=== PATIENT | male | born 1995 | race African-American/Black ===

== ENCOUNTER 2021-02-03 01:47 | Emergency (ER) | payer MEDICAID ==
[~2021-02-03] VITALS: Ht 175.3 cm; Wt 72.6 kg
[2021-02-03] MEDS ORDERED: KETOROLAC 60MG/2ML VIAL IM STA (02:21)
[2021-02-03] MEDS ORDERED: HYDROCODONE/ACETAMINOPHEN 5/325MG TABLET PO STA (02:21)
[2021-02-03] MEDS ORDERED: AMOXICILLIN/POTASSIUM CLAVULANATE 875/125MG TAB PO ONE (02:30)
[2021-02-03] MEDS ORDERED: BACITRACIN ZINC OINT UDPKT TOP ONE (02:30)
[2021-02-03] MEDS ORDERED: LIDOCAINE HCL/EPINEPHRINE 1%-EPI 1:100,000 10 ML VIAL IJ ONE (02:30)
[2021-02-03] MEDS ORDERED: LIDOCAINE HCL/EPINEPHRINE 1%-EPI 1:100,000 20 ML VIAL INFIL SCH (02:45)
[2021-02-03] MEDS ORDERED: T3 PO (03:56)
[2021-02-03] MEDS ORDERED: IBUP-2029 PO (03:56)
[2021-02-03] MEDS ORDERED: AMOX-424 PO (03:56)
[2021-02-03 04:45] VITALS: BP 129/79
== END 2021-02-03 04:47 | disposition home or self-care (01) ==
LOC: ER 01:47
DX: S81.851A Open bite, right lower leg, initial encounter (principal); W54.0XXA Bitten by dog, initial encounter; Y93.89 Activity, other specified; Y92.89 Other specified places as the place of occurrence of the external cause; Y99.8 Other external cause status; Z79.899 Other long term (current) drug therapy
CPT/HCPCS: 12002; 73590; 96372; 99284; J1885; J3490; Z7610

== ENCOUNTER 2023-04-21 12:46 | Emergency (ER) | payer MEDICAID, OTHER ==
[~2023-04-21] VITALS: Ht 175.3 cm; Wt 73.0 kg
[~2023-04-21 12:46] MED LIST: AMOX-424 PO; IBUP-2029 PO; T3 PO
[2023-04-21 13:13] VITALS: O2SAT 100
[2023-04-21] MEDS ORDERED: DEXAMETHASONE 10 MG/ML VIAL IV ONE (13:45)
[2023-04-21] MEDS ORDERED: ACETAMINOPHEN 325MG TABLET PO ONE (13:45)
[2023-04-21] MEDS ORDERED: METOCLOPRAMIDE HCL 10MG/2ML VIAL IV ONE (13:45)
[2023-04-21] MEDS ORDERED: KETOROLAC 30MG/ML VIAL IV STA (13:45)
[2023-04-21] MEDS ORDERED: SODIUM CHLORIDE 0.9% 1,000 ML IV ONE (13:45)
[2023-04-21 15:28] LABS: BASOPHILS % 0.8 % (0.0-2.0); EOSINOPHILS % 0.4 % (0.0-5.0); MEAN CORPUSCULAR HEMOGLOBIN 27.7 pg (28.0-32.0); MEAN CORPUSCULAR VOLUME 86.7 fL (80.0-94.0); MEAN PLATELET VOLUME 10.3 fl (7.4-10.4); MONOCYTES % 11.3 % (2.0-8.0); NEUTROPHILS % 65.5 % (40.0-76.0); PLATELET 149 x1000/uL (130-400); RED BLOOD CELL COUNT 5.43 mill/uL (4.7-6.1); RED CELL DISTRIBUTION WIDTH 14.1 % (11.6-14.6); WHITE BLOOD COUNT 6.2 x1000/uL (4.5-11.0)
[2023-04-21] MEDS ORDERED: DEXAMETHASONE 10 MG/ML VIAL IV NR ×2 (15:30)
[2023-04-21] MEDS ORDERED: KETOROLAC 30MG/ML VIAL IV NR (15:30)
[2023-04-21] MEDS ORDERED: ACETAMINOPHEN 325MG TABLET PO NR (15:30)
[2023-04-21] MEDS ORDERED: METOCLOPRAMIDE HCL 10MG/2ML VIAL IV NR (15:30)
[2023-04-21 15:42] LABS: CHLORIDE 107 mEq/L (98-107); INDEX HEMOLYSI 1 (1-3); INDEX ICTERIC 1 (1-4); INDEX LIPEMIC 1 (1-3); POTASSIUM 4.7 mEq/L (3.5-5.1); SODIUM 140 mEq/L (136-145)
[2023-04-21 15:49] LABS: ALANINE AMINOTRANSFERASE 53 IU/L (13-61); ALBUMIN 4.2 g/dL (3.4-5.0); ASPARTATE AMINOTRANSFERASE 42 IU/L (15-37); BILIRUBIN TOTAL 1.1 mg/dL (0.1-1.0); CALCIUM 9.1 mg/dL (8.5-10.1); CARBON DIOXIDE 30 mEq/L (21-32); CREATININE 1.1 mg/dL (0.6-1.3); GLUCOSE 87 mg/dL (70-105); PROTEIN TOTAL 7.6 g/dL (6.0-8.3); UREA NITROGEN BLOOD 15 mg/dL (7-21)
[2023-04-21 16:27] VITALS: BP 111/85; PULSE 60; RESP 16; TEMP 98.7
== END 2023-04-21 17:03 | disposition home or self-care (01) ==
LOC: ER 12:46
DX: R51.9 Headache, unspecified (principal); Z86.59 Personal history of other mental and behavioral disorders
CPT/HCPCS: 80053; 85025; 36415; 96361; 96374; 96375; 99284; J1100; J1885; J2765; J7030; Z7610 ×3

== ENCOUNTER 2023-06-06 11:54 | Emergency (ER) | payer OTHER ==
[~2023-06-06] VITALS: Ht 182.9 cm; Wt 72.0 kg
[2023-06-06 11:56] VITALS: O2SAT 99
[2023-06-06] MEDS ORDERED: KETOROLAC 60MG/2ML VIAL IM ONE (13:00)
[2023-06-06] MEDS ORDERED: LIDOCAINE 5% PATCH TOP SCH (13:00)
[2023-06-06 13:57] LABS: CLARITY URINE CLEAR (CLEAR); COLOR URINE YELLOW (YELLOW); GLUCOSE URINE NEGATIVE (NEGATIVE); KETONES URINE NEGATIVE (NEGATIVE); LEUKOCYTE ESTERASE URINE NEGATIVE (NEGATIVE); NITRITE URINE NEGATIVE (NEGATIVE); OCCULT BLOOD URINE NEGATIVE (NEGATIVE); PROTEIN URINE NEGATIVE (NEGATIVE); SPECIFIC GRAVITY URINE 1.016 (1.005-1.030)
[2023-06-06] MEDS ORDERED: KETOROLAC 60MG/2ML VIAL IM NR (17:07)
[2023-06-06] MEDS ORDERED: LIDOCAINE 5% PATCH TOP NR (17:08)
[2023-06-06 18:26] VITALS: BP 130/85; PULSE 66; RESP 20; TEMP 98
== END 2023-06-06 18:27 | disposition home or self-care (01) ==
LOC: ER 12:03
DX: M54.50 Low back pain, unspecified (principal); F12.90 Cannabis use, unspecified, uncomplicated; N18.9 Chronic kidney disease, unspecified
CPT/HCPCS: 81003; 71046; 96372; 99284; J1885; Z7610